=== PATIENT | male | born 1995 | race African-American/Black ===

== ENCOUNTER 2025-04-13 14:51 | Outpatient (CLI) | payer OTHER, SELFPAY | END 2025-04-13 14:52 | disposition home or self-care (01) | PROVIDERS: PCP Family Medicine; Visit Provider Family Medicine | DX: Z00.00 Encounter for general adult medical examination without abnormal findings (principal); E66.9 Obesity, unspecified; Z68.34 Body mass index [BMI] 34.0-34.9, adult; Z13.1 Encounter for screening for diabetes mellitus | CPT/HCPCS: 80061; 82947 ==